=== PATIENT | male | born 1960 | race Caucasian/White ===

== ENCOUNTER 2019-06-25 18:29 | Emergency (ER) | payer OTHER ==
--- NOTE | 2019-06-25 18:40 | ERPHSYRPT ---
- History of Present Illness Time Seen by Provider: 06/25/19 18:39 Source: patient Exam Limitations: no limitations Physician History: This is a 59-year-old right-handed white male who presents with laceration x2 on his left hand. Patient was working with sheet metal when it "got away from me" and patient suffered a 4.5 cm laceration to his left palm and a 1.5 cm laceration to the palmar distal second digit. Patient's tetanus is not up-to- date. Timing/Duration: today Quality: painful Severity: mild (Filed) Location: hands (Left hand) Possible Causes: other (Accidental sheet metal laceration) Associated Symptoms: denies symptoms Allergies/Adverse Reactions: No Known Drug Allergies Allergy (Unverified 06/25/19 18:50) Home Medications: Lisdexamfetamine Dimesylate [Vyvanse] 1 ea DAILY 06/25/19 [History] - Review of Systems Constitutional: No Symptoms Eyes: No Symptoms Ears, Nose, & Throat: No Symptoms Respiratory: No Symptoms Cardiac: No Symptoms Abdominal/Gastrointestinal: No Symptoms Genitourinary Symptoms: No Symptoms Musculoskeletal: No Symptoms Skin: Other (Laceration of left second digit and proximal palm both palmar aspect) Neurological: No Symptoms Psychological: No Symptoms Endocrine: No Symptoms Hematologic/Lymphatic: No Symptoms Immunological/Allergic: No Symptoms All Other Systems: Reviewed and Negative - Past Medical History Neurological History: No Pertinent History ENT History: No Pertinent History Cardiac History: No Pertinent History Respiratory History: No Pertinent History Endocrine Medical History: No Pertinent History Musculoskeletal History: No Pertinent History GI Medical History: No Pertinent History History: No Pertinent History Psycho-Social History: No Pertinent History Male Reproductive Disorders: No Pertinent History - Past Surgical History Neuro Surgical History: No Pertinent History Cardiac: No Pertinent History Respiratory: No Pertinent History Gastrointestinal: No Pertinent History Genitourinary: No Pertinent History Musculoskeletal: No Pertinent History Male Surgical History: No Pertinent History - Nursing Vital Signs Nursing Vital Signs: Initial Vital Signs Temperature 97.0 F 06/25/19 18:45 Pulse Rate 70 06/25/19 18:45 Respiratory Rate 18 06/25/19 18:45 Blood Pressure 155/99 06/25/19 18:45 O2 Sat by Pulse Oximetry 97 06/25/19 18:45 Pain Scale Pain Intensity 6 - Physical Exam General Appearance: no apparent distress, alert Eye Exam: PERRL/EOMI, eyes nml inspection Ears, Nose, Throat Exam: normal ENT inspection, moist mucous membranes Neck Exam: normal inspection, non-tender, supple, full range of motion Respiratory Exam: No chest tenderness Gastrointestinal/Abdomen Exam: No tenderness Rectal Exam: not done Back Exam: normal inspection, normal range of motion, No CVA tenderness, No vertebral tenderness Extremity Exam: lacerations (X2 of the left hand. Both lacerations on the palmar aspect. The distal second digit laceration is 1.5 cm while the more proximal palmar hand laceration is curvilinear measuring approximately 4-1/2 to 5 cm. It is more of a flap laceration. Patient's tendon function is intact. Patient is neurovascularly intact. There is no foreign body present. Repair was performed in a bloodless field.) Neurologic Exam: alert, oriented x 3, cooperative, rn hedis II-XII nml as tested, normal mood/affect, nml cerebellar function, nml station & gait Skin Exam: normal color, warm, dry, laceration (The above) Lymphatic Exam: No adenopathy SpO2 Interpretation: normal O2 Delivery: Room Air Procedures - Laceration/Wound Repair Left Volar Hand Wound Length (cm): 6.5 (Is the total length of the combined 2 lacerations as described on the physical exam portion.) Wound's Depth, Shape: superficial, flap Wound Explored: There is no foreign body noted there is a bloodless field Irrigated: Yes Hibiclens Prep: Yes ( to the base) Anesthesia: local, 1% Lidocaine Volume Anesthetic (ccs): 10 (There was 10 mL total used) Wound Repaired With: sutures Suture Size/Type: 4-0, prolene Number of Sutures: 10 (3 sutures were used for the distal second digit laceration and 7 for the left hand palmar laceration) Layer Closure?: No Sterile Dressing Applied?: Yes - Course Nursing assessment & vital signs reviewed: Yes Ordered Tests: Active Orders 24 hr Category Date Time Status Wound Care STAT Care 06/25/19 19:59 Active Medication Summary Discontinued Medications Generic Name Dose Route Start Last Admin Trade Name Freq PRN Reason Stop Dose Admin Diphtheria/Tetanus/Acell Pertussis 0.5 ml 06/25/19 19:58 06/25/19 20:04 Adacel Vial IM 06/25/19 19:59 0.5 ml .ONCE ONE Administration Diphtheria/Tetanus/Acell Pertussis Confirm 06/25/19 20:02 Adacel Vial Administered 06/25/19 20:03 Dose 0.5 ml IM .STK-MED ONE Lidocaine HCl 10 ml 06/25/19 20:01 06/25/19 20:15 Xylocaine 1% Hcl 20 Ml Mdv IJ 06/25/19 20:02 10 ml STAT ONE Administration - Progress Progress: improved Counseled pt/family regarding: diagnosis, need for follow-up - Departure Departure Disposition: Home Clinical Impression: Finger laceration, Hand laceration Condition: Stable Critical Care Time: No Referrals: RENATE DAVIS Jr. [Primary Care Provider] - Additional Instructions: With the current pressure dressing in place until tomorrow evening after 8 PM. May remove the pressure dressing after 24 hours then shower, dry the sites and apply antibiotic ointment and bandage to each site. Cover your laceration repair sites every day while working. Return for suture removal in 8 to 10 days. Observe the wound and if there is redness present after 48 hours fill the Keflex prescription as discussed Prescriptions: Cephalexin Mh 500 mg [Keflex 500 mg] 500 mg PO TID #15 capsule
[2019-06-25] MEDS ORDERED: Adacel Vial IM ONE ×2 (19:58→20:02)
[2019-06-25] MEDS ORDERED: XYLOCAINE 1% HCL 20 ML MDV IJ ONE (20:01)
[2019-06-25 20:19] VITALS: PULSE 58; O2SAT 98
[2019-06-25 20:57] VITALS: BP 145/93
== END 2019-06-25 21:04 | disposition home or self-care (01) ==
LOC: ED 18:29
DX: S61.211A Laceration without foreign body of left index finger without damage to nail, initial encounter (principal); S61.412A Laceration without foreign body of left hand, initial encounter; W26.8XXA Contact with other sharp object(s), not elsewhere classified, initial encounter
CPT/HCPCS: 12001; 12002; 90471; 90715; 96372; 99284